=== PATIENT | male | born 1950 | race Caucasian/White ===

== ENCOUNTER 2017-12-24 12:23 | Day surgery (SDC) | payer MEDICARE ==
[2012-01-08 18:27] VITALS: BP 129/82
[2017-12-24] MEDS ORDERED: Marcaine 0.5% SDV 10 ML IJ ONE (12:24)
[2017-12-24] MEDS ORDERED: Xylocaine 1% Vial 30 ML PF IJ ONE (12:24)
[2017-12-24] MEDS ORDERED: Depo-Medrol 40 MG/ML IM ONE (12:24)
--- NOTE | 2017-12-24 14:10 | XRAY ---
Indication: Right shoulder cortisone injection. Intraoperative fluoroscopy was provided for 12 seconds. 2 digital spot images submitted for interpretation demonstrates a spinal needle tip projecting over the right superior humeral head. Small amount of contrast injected for needle tip placement. Correlate with intraoperative findings/report.
--- NOTE | 2017-12-24 14:12 | XRAY ---
Indication: Left shoulder cortisone injection. Intraoperative fluoroscopy was provided for 12 seconds. 2 digital spot images submitted for interpretation demonstrates a spinal needle tip projecting over the left superior humeral head. Small amount of contrast injected for needle tip placement. Correlate with intraoperative findings/report.
--- NOTE | 2017-12-24 16:37 | XRAY ---
24 seconds of fluoroscopy was used in surgery for bilateral shoulder injections.
== END 2017-12-24 13:50 | disposition home or self-care (01) ==
LOC: SDC-PAIN 12:23
PROVIDERS: ATTEND Psychiatry & Neurology Pain Medicine
DX: M25.511 Pain in right shoulder (principal)
CPT/HCPCS: 73030; 76000; J1030; J2001

== ENCOUNTER 2018-06-10 16:30 | Day surgery (SDC) | payer MEDICARE ==
[2012-01-08 18:27] VITALS: BP 129/82
[2018-06-10] MEDS ORDERED: Marcaine 0.5% SDV 10 ML IJ ONE (16:31)
[2018-06-10] MEDS ORDERED: Xylocaine 1% Vial 30 ML PF IJ ONE (16:31)
[2018-06-10] MEDS ORDERED: Kenalog-40 IM ONE (16:31)
--- NOTE | 2018-06-11 08:37 | XRAY ---
Indication: Right shoulder injection. Intraoperative fluoroscopy was provided for 21 seconds. Single digital spot image submitted for interpretation demonstrates needle tip projecting over the right humeral head. Small amount of contrast injected for needle tip placement. Correlate with intraoperative findings/report.
--- NOTE | 2018-06-11 08:41 | XRAY ---
17 seconds of fluoroscopy was used in surgery for a left intra-articular shoulder injection.
--- NOTE | 2018-06-11 08:41 | XRAY ---
Indication: Left shoulder injection. Intraoperative fluoroscopy was provided for 17 seconds. 2 digital spot images submitted for interpretation demonstrates needle tip projecting over the left humeral head. Small amount of contrast injected for needle tip placement. Correlate with intraoperative findings/report.
--- NOTE | 2018-06-11 08:41 | XRAY ---
21 seconds of fluoroscopy was used in surgery for a right intra-articular shoulder injection.
== END 2018-06-10 18:15 | disposition home or self-care (01) ==
LOC: SDC-PAIN 16:30
PROVIDERS: ATTEND Psychiatry & Neurology Pain Medicine
DX: M25.511 Pain in right shoulder (principal); M25.512 Pain in left shoulder; M19.012 Primary osteoarthritis, left shoulder; M19.011 Primary osteoarthritis, right shoulder; Z79.899 Other long term (current) drug therapy; I10 Essential (primary) hypertension; J44.9 Chronic obstructive pulmonary disease, unspecified; M19.90 Unspecified osteoarthritis, unspecified site; E78.00 Pure hypercholesterolemia, unspecified
CPT/HCPCS: 20610; 73030; 77002; J2001; J3301; Q9967

== ENCOUNTER 2018-09-30 15:40 | Day surgery (SDC) | payer MEDICARE ==
[2012-01-08 18:27] VITALS: BP 129/82
[2018-09-30] MEDS ORDERED: Xylocaine 1% Vial 30 ML PF IJ ONE (15:41)
[2018-09-30] MEDS ORDERED: Marcaine 0.5% SDV 10 ML IJ ONE (15:41)
[2018-09-30] MEDS ORDERED: Depo-Medrol 40 MG/ML IM ONE (15:41)
--- NOTE | 2018-10-01 08:32 | XRAY ---
Indication: Right shoulder injection. Intraoperative fluoroscopy was provided for 8 seconds. 2 digital spot images submitted for interpretation demonstrates needle tip projecting over the right superior humeral head. Small amount of contrast injected for needle tip placement. Correlate with intraoperative findings/report.
--- NOTE | 2018-10-01 08:34 | XRAY ---
8 seconds of fluoroscopy was used in surgery for a right intra-articular shoulder injection.
--- NOTE | 2018-10-01 08:34 | XRAY ---
13 seconds of fluoroscopy was used in surgery for a left intra-articular shoulder injection.
--- NOTE | 2018-10-01 08:44 | XRAY ---
Indication: Left shoulder injection. Intraoperative fluoroscopy was provided for 13 seconds. Single digital spot image submitted for interpretation demonstrates needle tip projecting over the left glenohumeral joint. Small amount of contrast injected for needle tip placement. Correlate with intraoperative findings/report.
== END 2018-09-30 17:05 | disposition home or self-care (01) ==
LOC: SDC-PAIN 15:40
PROVIDERS: ATTEND Psychiatry & Neurology Pain Medicine
DX: M19.012 Primary osteoarthritis, left shoulder (principal); M19.011 Primary osteoarthritis, right shoulder; J44.9 Chronic obstructive pulmonary disease, unspecified; I10 Essential (primary) hypertension; I25.10 Atherosclerotic heart disease of native coronary artery without angina pectoris; E78.00 Pure hypercholesterolemia, unspecified
CPT/HCPCS: 73030; 77002; J1030; J2001